=== PATIENT | female | born 1990 | race Caucasian/White ===

== ENCOUNTER → 2018-02-10 | Day surgery (SDC) | payer OTHER ==
[~2018-02-10] MED LIST: CLONAZEPAM1 MG PO; KETOROLAC30 MG/1 M2 IV; RESTORIL30 M1 PO; SEROQUEL XR50 MG PO; SEROQUEL200 MG PO; SYNTHROID50 MCG PO; TRAM1TAB98 PO; ZOLOFT100 MG PO
== END | disposition home or self-care (01) ==
LOC: ADM 02-03 09:15 → CIR.AMB 08:00
DX: N93.8 Other specified abnormal uterine and vaginal bleeding (principal)

== ENCOUNTER 2018-02-15 09:54 | Day surgery (SDC) | payer OTHER ==
[~2018-02-15] VITALS: Ht 172.7 cm; Wt 79.4 kg
[~2018-02-15 09:54] MED LIST changes: -CLONAZEPAM1 MG PO; -SEROQUEL200 MG PO
[2018-02-15] MEDS ORDERED: ZOLOFT100 MG PO (10:02)
[2018-02-15] MEDS ORDERED: SYNTHROID50 MCG PO (10:02)
[2018-02-15] MEDS ORDERED: SEROQUEL200 MG PO (10:03)
[2018-02-15] MEDS ORDERED: RESTORIL30 M1 PO (10:03)
[2018-02-15] MEDS ORDERED: CLONAZEPAM1 MG PO (10:04)
== END 2018-02-15 19:40 | disposition home or self-care (01) ==
LOC: ER 09:54 → CIR.AMB 14:22
DX: T88.59XA Other complications of anesthesia, initial encounter (principal); T41.3X5A Adverse effect of local anesthetics, initial encounter; G44.40 Drug-induced headache, not elsewhere classified, not intractable

== ENCOUNTER 2022-04-23 08:06 | Outpatient (CLI) | payer OTHER ==
[~2022-04-23 08:06] MED LIST changes: +CLONAZEPAM1 MG PO; +SEROQUEL200 MG PO
== END 2022-04-23 08:11 | disposition home or self-care (01) ==
LOC: RX STUDY 08:06
DX: K21.9 Gastro-esophageal reflux disease without esophagitis (principal)

== ENCOUNTER 2023-03-26 19:47 | Emergency (ER) | payer OTHER ==
[~2023-03-26] VITALS: Ht 172.7 cm; Wt 142.9 kg
[2023-03-26] MEDS ORDERED: WELLBUTRIN XL150 M1 PO (20:16)
[2023-03-26] MEDS ORDERED: LAMICTAL100 M1 PO (20:17)
[2023-03-26] MEDS ORDERED: VISTARIL25 MG PO (20:18)
[2023-03-26 21:22] LABS: HEMATOCRIT 37.1 % (36.0-45.00); MEAN CELL VOLUME 79.6 fL (80.00-100.00); MEAN CORPUSCULAR HEMOGLOBIN 25.6 pg (27.00-32.0); MEAN CORPUSCULAR HGB CONC 32.2 g/dl (32.0-36.0); PLATELET COUNT 320 K/uL (150-450); RED BLOOD COUNT 4.67 M/uL (4.00-6.00); RED CELL DISTRIBUTION WIDTH 18.6 % (11.5-14.5)
== END 2023-03-26 22:19 | disposition home or self-care (01) ==
LOC: ER 19:49
PROVIDERS: General Practice
DX: N93.8 Other specified abnormal uterine and vaginal bleeding (principal); R53.1 Weakness

== ENCOUNTER 2023-05-15 19:19 | Emergency (ER) | payer OTHER ==
[~2023-05-15] VITALS: Ht 172.7 cm; Wt 142.9 kg
[~2023-05-15 19:19] MED LIST changes: +LAMICTAL100 M1 PO; +VISTARIL25 MG PO; +WELLBUTRIN XL150 M1 PO
[2023-05-15] MEDS ORDERED: KETOROLAC TROMETHAMINE 60 MG VIAL IM ONE (21:15)
[2023-05-15 21:40] LABS: HEMATOCRIT 35.4 % (36.0-45.00); HEMOGLOBIN 11.8 g/dL (12.0-15.00); MEAN CORPUSCULAR HEMOGLOBIN 26.6 pg (27.00-32.0); MEAN CORPUSCULAR HGB CONC 33.3 g/dl (32.0-36.0); PLATELET COUNT 341 K/uL (150-450); RED BLOOD COUNT 4.43 M/uL (4.00-6.00)
[2023-05-15 22:04] LABS: CALCIUM 8.6 mg/dL (8.5-10.1); CREATININE SERUM 1.04 mg/dL (0.55-1.02); GFR 61.81; POTASSIUM 4.13 mEq/L (3.5-5.1)
[2023-05-15 23:15] LABS: URINE APPEARANCE Clear; URINE BILIRRUBIN Negative (NEGATIVE); URINE BLOOD Negative; URINE COLOR Dark Yellow; URINE GLUCOSE Negative (NEGATIVE); URINE LEUKOCYTE Negative; URINE NITRATE Positive; URINE PROTEIN Negative (NEGATIVE)
[2023-05-15 23:19] LABS: URINE BACTERIA 1597.3 uL (0.0-1933); URINE EPITHELIAL CELLS 32.4 uL (0.0-38.8); URINE RBC 7.9 uL (0.0-20.8)
[2023-05-15] MEDS ORDERED: CIPRO500 MG PO (23:36)
== END 2023-05-16 00:17 | disposition home or self-care (01) ==
LOC: ER 19:19
PROVIDERS: Internal Medicine; Nurse Practitioner Family
DX: N39.0 Urinary tract infection, site not specified (principal); R10.2 Pelvic and perineal pain; E03.9 Hypothyroidism, unspecified; F31.81 Bipolar II disorder